=== PATIENT | female | born 1975 | race Caucasian/White ===

== ENCOUNTER 2016-10-10 06:34 | Day surgery (SDC) | payer BC, OTHER ==
[2016-09-28 14:10] VITALS: BMI 38.0
[~2016-10-10 06:34] MED LIST: ceFAZolin SODIUM 1 GM VIAL IVPB ONE
[2016-10-10] MEDS ORDERED: BUPIVACAINE HCL/PF 0.5% (5MG/ML) 10 ML VIAL ONE (07:29)
[2016-10-10] MEDS ORDERED: PROPOFOL 20 ML ONE ×2 (07:50)
[2016-10-10] MEDS ORDERED: SUCCINYLCHOLINE CHLORIDE 200 MG/10 ML VIAL ONE (07:50)
[2016-10-10] MEDS ORDERED: MIDAZOLAM HCL 2 MG/2 ML SINGLE DOSE VIAL ONE (07:50)
[2016-10-10] MEDS ORDERED: ceFAZolin SODIUM 1 GM VIAL ONE (08:31)
[2016-10-10] MEDS ORDERED: ceFAZolin SODIUM 1 GM VIAL IVPB ONE (08:34)
[2016-10-10] MEDS ORDERED: KETOROLAC TROMETHAMINE 30 MG/1 ML VIAL ONE (08:37)
[2016-10-10] MEDS ORDERED: DEXAMETHASONE SOD PHOSPHATE 4 MG/1 ML VIAL ONE (08:37)
[2016-10-10] MEDS ORDERED: BUPIVACAINE HCL/PF 0.5% (5MG/ML) 10 ML VIAL IJ ONE (08:53)
--- NOTE | 2016-10-10 09:09 | HP ---
[facility] - Chief Complaint Chief Complaint: right knee pain History of Present Illness: right knee pain History Source: Patient Limitations to Obtaining History: No Limitations - Past Medical History Allergies/Adverse Reactions: Allergies Allergy/AdvReac Type Severity Reaction Status Date / Time No Known Drug Allergies Allergy Verified 10/10/16 07:12 ...LMP: 09/16/16 - Current Medications Current Medications: Home Medications Medication Instructions Recorded Cyclobenzaprine HCl [Flexeril 10 10 mg PO DAILY PRN 09/28/16 mg] Ibuprofen [Advil -] 200 mg PO PRN PRN 09/28/16 [facility]ellite Physical Exam - Physical Examination Vital Signs: Vital Signs Period Temp Pulse Resp BP Sys/Walton Pulse Ox Last 24 Hr 98.2 F 79 18 113/64 98 General Appearance: Well Nourished ENT: Clear Lung: Clear to auscultation Heart: Regular rate & rhythm Breasts: Soft Abdomen: Soft Extremities: No edema [facility]ellite Impression/Plan - Impression/Plan Impression: right knee medial meniscus tear Operative Procedure: right knee arthroscopy, partial medial and lateral meniscectomy Date to be Performed: 10/10/16
--- NOTE | 2016-10-10 09:12 | OP ---
Operative Note - Note: Operative Date: 10/10/16 Pre-Operative Diagnosis: right knee pain, medial meniscus tear Operation: right knee arthroscopy, partial medial and lateral meniscectomy Post-Operative Diagnosis: Same as Pre-op Surgeon: Alen Caro Rn Community: Jeff Mackay Anesthesiologist/IT AUDITOR: Liza Suarez Anesthesia: General, Local Specimens Removed: shavings Estimated Blood Loss (mls): 0 Drains, Volume Out (mls): 0 Blood Volume Replaced (mls): 0 Fluid Volume Replaced (mls): 500 Operative Report Dictated: Yes
[2016-10-10] MEDS ORDERED: PROMETHAZINE HCL 25 MG/1 ML VIAL IVPUSH PRN (09:48)
[2016-10-10] MEDS ORDERED: oxyCODONE HCL 5 MG TABLET PO PRN (09:48)
[2016-10-10 10:38] VITALS: TEMP 97.9
[2016-10-10 12:57] VITALS: BP 126/66; PULSE 86
--- NOTE | 2016-10-10 20:41 | OP ---
DATE OF OPERATION: 10/10/2016 PREOPERATIVE DIAGNOSIS: Right knee pain, medial meniscus tear. POSTOPERATIVE DIAGNOSIS: Right knee pain, medial meniscus tear. PROCEDURE: Right knee arthroscopy, partial medial and lateral meniscectomy. SURGEON: Alen Caro MD SENIOR SERVICE TECHNICIAN: Mike Fernández MD; Liza Suarez CRNA ANESTHESIA: Laryngeal mask anesthesia, local injection of 20 mL 0.5% Marcaine. DRAINS: None. COMPLICATIONS: None. SPECIMENS: Arthroscopic shavings. BLOOD LOSS: None. BLOOD GIVEN: None. FLUID REPLACEMENT: 500 mL. INDICATIONS: This patient is a 41-year-old female with a preoperative diagnosis of right knee pain and medial meniscus tear. After understanding the potential risks, complications, alternatives, and benefits to surgical versus nonsurgical treatment, the patient elected to undergo this procedure. The patient was brought to the operating room, peripheral IV placed, IV sedation given, 1 g of IV Ancef was given. LM anesthesia was induced. Ample Webril was placed on the right leg. She was placed in the C clamp leg watts with ample padding throughout. The right lower extremity was prepped and draped in sterile fashion, elevated, exsanguinated with an Esmarch bandage, the tourniquet inflated to 275 mmHg. The superomedial outflow portal was established. Lateral portal was established under direct visualization. A medial portal was established. A diagnostic arthroscopy was performed. The patient was seen to have a complex tear of the body and posterior horn of the medial meniscus. This was debrided with a curved shaver. The patient had grade 1 and small areas of grade 2 arthritic changes of the medial femoral condyle and the medial tibial plateau. Photographs were taken throughout. The intercondylar notch looked good, the ACL at the appropriate tension. The lateral compartment looked good except there was some small fraying of the lateral meniscus, body and anterior horn. This was debrided with a shaver. Photographs were taken. There was no arthritis in the lateral compartment. Next our attention turned to the patellofemoral joint. The patient had a small amount of trochlear grooving and very small amount of less than grade 1 chondromalacia in the undersurface of the patella but otherwise it looked good. There was some excessive fat pad, which was removed. The area was copiously irrigated and washed out, all instrumentation removed, all excess saline removed. The arthroscopy portal was closed with 3-0 nylon sutures. The area was then washed and dried, covered with Xeroform. Then 20 mL of 0.5% Marcaine was introduced into the joint. It was then covered with sterile 4 x 4, sterile Webril, and a 6-inch Mahendra bandage. The tourniquet was taken down after total tourniquet time of about 15 minutes. There were no complications during the case. The patient tolerated the procedure quite well, was brought to the ambulatory recovery room in stable condition. MIKE FERNÁNDEZ M.D. [id number]
--- NOTE | 2016-10-11 15:26 | PATH ---
Surgical Pathology Report Patient Name: JENNIFER FAJARDO [facility]. Rec. #: [id number] /Age/Gender: 1975 (Age: 41) / F Account: [id number] Location: [facility] Taken: 10/10/2016 Received: 10/10/2016 Reported: 10/11/2016 Physicians: Jennifer Max M.D. 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 Electronically Signed Malvin Richardson M.D. Gross Description Received in formalin, labeled "right knee shavings" is a 4.0 x 2.4 x 0.3 cm aggregate of escalante-yellow soft tissue fragments. A financial foundations representative portion is submitted in one cassette. /10/10/201610/10/2016
== END 2016-10-10 12:45 | disposition home or self-care (01) ==
LOC: JASU-SURG 06:34
PROVIDERS: ATTEND Orthopaedic Surgery
PROC: 0SBC4ZZ Excision of Right Knee Joint, Percutaneous Endoscopic Approach (ICD-10-PCS; 2016-10-10)
PROC: 0SBC4ZZ Excision of Right Knee Joint, Percutaneous Endoscopic Approach (ICD-10-PCS; principal; 2016-10-10 08:00)
DX: S83.241A Other tear of medial meniscus, current injury, right knee, initial encounter (principal); X58.XXXA Exposure to other specified factors, initial encounter; Y93.9 Activity, unspecified; Y92.9 Unspecified place or not applicable; Y99.9 Unspecified external cause status
CPT/HCPCS: 84703; 88304-TC; 94760

== ENCOUNTER 2022-01-17 03:57 | Day surgery (SDC) | payer BC, OTHER ==
[2022-01-10 11:54] VITALS: BMI 32.5
[2022-01-17] MEDS ORDERED: PROPOFOL 60 ML ONE (07:42)
[2022-01-17] MEDS ORDERED: MIDAZOLAM HCL 2 MG/2 ML SINGLE DOSE VIAL ONE (07:42)
[2022-01-17] MEDS ORDERED: PROPOFOL 20 ML ONE (07:44)
[2022-01-17] MEDS ORDERED: KETOROLAC TROMETHAMINE 30 MG/1 ML VIAL ONE (07:45)
[2022-01-17] MEDS ORDERED: ONDANSETRON 4 MG/2 ML VIAL ONE (07:45)
[2022-01-17] MEDS ORDERED: DEXAMETHASONE SOD PHOSPHATE 4 MG/1 ML VIAL ONE (07:45)
[2022-01-17] MEDS ORDERED: ceFAZolin SODIUM 1 GM VIAL ONE (07:45)
[2022-01-17] MEDS ORDERED: BUPIVACAINE HCL/PF 0.5% (5MG/ML) 10 ML VIAL ONE ×2 (07:58→08:21)
[2022-01-17] MEDS ORDERED: ceFAZolin SODIUM 1 GM VIAL IVPB ONE (08:15)
[2022-01-17] MEDS ORDERED: ONDANSETRON 4 MG/2 ML VIAL IVPUSH PRN (08:20)
[2022-01-17] MEDS ORDERED: oxyCODONE HCL 5 MG TABLET PO PRN ×2 (08:20)
[2022-01-17] MEDS ORDERED: BUPIVACAINE HCL/PF 0.5% (5MG/ML) 10 ML VIAL IJ ONE (08:28)
[2022-01-17] MEDS ORDERED: LACTATED RINGERS SOLUTION 1,000 ML IV SCH (08:30)
[2022-01-17 10:52] VITALS: RESP 18
[2022-01-17 12:27] VITALS: BP 139/78; PULSE 81; TEMP 98
== END 2022-01-17 11:55 | disposition home or self-care (01) ==
LOC: JASU-SURG 03:57
PROVIDERS: ATTEND Orthopaedic Surgery
PROC: 0SBD4ZZ Excision of Left Knee Joint, Percutaneous Endoscopic Approach (ICD-10-PCS; 2022-01-17)
PROC: 0SQD4ZZ Repair Left Knee Joint, Percutaneous Endoscopic Approach (ICD-10-PCS; 2022-01-17)
PROC: 0SBD4ZZ Excision of Left Knee Joint, Percutaneous Endoscopic Approach (ICD-10-PCS; principal; 2022-01-17 08:00)
DX: S83.282A Other tear of lateral meniscus, current injury, left knee, initial encounter (principal); S83.242A Other tear of medial meniscus, current injury, left knee, initial encounter; S83.512A Sprain of anterior cruciate ligament of left knee, initial encounter; X58.XXXA Exposure to other specified factors, initial encounter; Y93.9 Activity, unspecified; Y92.9 Unspecified place or not applicable; Y99.9 Unspecified external cause status
CPT/HCPCS: 81025; 94760